=== PATIENT | male | born 1960 | race Caucasian/White ===

== ENCOUNTER 2017-07-27 08:48 | Day surgery (SDC) | payer OTHER ==
[~2017-07-27 08:48] MED LIST: DIPATR PO; METF500 PO; Pepcid40 MG PO
== END 2017-07-27 22:55 | disposition home or self-care (01) ==
LOC: RAD 08:48 → MOI RAD 09:00 → RAD 09:00 → MOI MRI 09:00 → RAD 10:00
PROC: BP39YZZ Magnetic Resonance Imaging (MRI) of Left Shoulder using Other Contrast (ICD-10-PCS; principal; 2017-07-27)
DX: S43.432A Superior glenoid labrum lesion of left shoulder, initial encounter (principal); S46.012A Strain of muscle(s) and tendon(s) of the rotator cuff of left shoulder, initial encounter; M12.812 Other specific arthropathies, not elsewhere classified, left shoulder; S40.012A Contusion of left shoulder, initial encounter
CPT/HCPCS: 23350; 73222; 77002; A9577; Q9967

== ENCOUNTER 2017-10-25 08:29 | Day surgery (SDC) | payer OTHER, BC ==
[~2017-10-25] VITALS: Ht 177.8 cm; Wt 124.7 kg
[2017-10-25] MEDS ORDERED: Norvasc10 MG PO (09:21)
[2017-10-25] MEDS ORDERED: GLIP10 PO (09:22)
== END 2017-10-25 15:58 | disposition home or self-care (01) ==
LOC: ORSCSDS 08:29
DX: M75.112 Incomplete rotator cuff tear or rupture of left shoulder, not specified as traumatic (principal); M75.32 Calcific tendinitis of left shoulder; M75.42 Impingement syndrome of left shoulder; S43.432A Superior glenoid labrum lesion of left shoulder, initial encounter; E11.9 Type 2 diabetes mellitus without complications; I10 Essential (primary) hypertension; Z79.84 Long term (current) use of oral hypoglycemic drugs; F17.220 Nicotine dependence, chewing tobacco, uncomplicated
CPT/HCPCS: 82947; C1713; J0171; J0330; J0690; J2060; J2250; J2405; J2550; J3010; J7120

== ENCOUNTER 2017-11-03 20:26 | Emergency (ER) | payer BC ==
[~2017-11-03] VITALS: Ht 177.8 cm; Wt 124.7 kg
[~2017-11-03 20:26] MED LIST changes: +GLIP10 PO; +Norvasc10 MG PO
[2017-11-03] MEDS ORDERED: PENVK500 PO (21:29)
[2017-11-03] MEDS ORDERED: IBUP800 PO (21:29)
== END 2017-11-03 21:40 | disposition home or self-care (01) ==
LOC: ER 20:26
DX: K02.9 Dental caries, unspecified (principal); Z79.899 Other long term (current) drug therapy; E11.9 Type 2 diabetes mellitus without complications; F17.220 Nicotine dependence, chewing tobacco, uncomplicated
CPT/HCPCS: 99282

== ENCOUNTER 2019-03-15 11:25 | Emergency (ER) | payer OTHER ==
[~2019-03-15] VITALS: Ht 180.3 cm; Wt 99.8 kg
[~2019-03-15 11:25] MED LIST changes: +IBUP800 PO; +PENVK500 PO
[2019-03-15] MEDS ORDERED: Doxazosin Mesyla4 MG PO (11:39)
[2019-03-15] MEDS ORDERED: FURO20 PO (11:40)
[2019-03-15 12:12] LABS: BASOPHILS ABSOLUTE AUTO 0.03 K/mm3 (0.00-0.23); BASOPHILS PERCENT AUTO 0 % (0-2); EOSINOPHILS ABSOLUTE AUTO 0.01 K/mm3 (0.00-0.68); EOSINOPHILS PERCENT AUTO 0 % (0-6); Hematocrit 40.2 % (37.0-53.0); Hemoglobin 13.5 g/dL (13.5-17.5); IMMATURE GRAN ABSOLUTE AUTO 0.04 K/mm3 (0.00-0.10); IMMATURE GRAN PERCENT AUTO 0 % (0-1); LYMPHOCYTES ABSOLUTE AUTO 1.92 K/mm3 (0.84-5.20); LYMPHOCYTES PERCENT AUTO 22 % (21-46); MONOCYTES ABSOLUTE AUTO 0.57 K/mm3 (0.16-1.47); MONOCYTES PERCENT AUTO 6 % (4-13); Mean Corpuscular HGB 28.7 pg (26.0-34.0); Mean Corpuscular HGB Conc 33.6 g/dL (31.5-36.5); Mean Corpuscular Volume 86 fL (80-100); Mean Platelet Volume 10.1 fL (9.1-12.4); NEUTROPHILS ABSOLUTE AUTO 6.35 K/mm3 (1.96-9.15); NEUTROPHILS PERCENT AUTO 71 % (41-73); Platelet Count 264 K/mm3 (150-400); RDW Coefficient Variation 12.3 % (11.7-14.2); RDW Standard Deviation 38.3 fL (35.1-46.3); White Blood Cell Count 8.92 K/mm3 (4.00-11.30)
[2019-03-15 12:34] LABS: Alanine Aminotransfer (ALT/SGP 30 U/L (12-78); Albumin, Blood 3.6 g/dL (3.4-5.0); Albumin/Globulin Ratio 0.9 (0.8-1.8); Alk Phos 101 U/L (50-136); Anion Gap 6 mmol/L (6-16); Aspartate Aminotrans (AST/SGOT 11 U/L (12-37); Bilirubin, Total 0.4 mg/dL (0.1-1.0); Blood Urea Nitrogen 15 mg/dL (8-24); Bun/Creatinine Ratio 18.5 (12.0-20.0); CO2, Blood 27 mmol/L (21-32); Calcium, Blood 8.7 mg/dL (8.5-10.1); Chloride, Blood 103 mmol/L (98-108); Creatinine, Blood 0.81 mg/dL (0.60-1.20); Free Thyroxine 1.11 ng/dL (0.70-1.60); Globulin, Blood 4.2 g/dL (2.2-4.0); Glomerular Filtration Rate >60 (60-); Glucose, Blood 276 mg/dL (70-99); Magnesium, Blood 1.8 mg/dL (1.6-2.4); Potassium, Blood 4.1 mmol/L (3.5-5.5); Sodium, Blood 136 mmol/L (136-145); Total Protein, Blood 7.8 g/dL (6.4-8.2); Troponin I <0.015 ng/mL (0.000-0.040)
[2019-03-15 12:38] LABS: Thyroid Stimulating Hormone 0.999 uIU/mL (0.360-4.800)
== END 2019-03-15 13:40 | disposition home or self-care (01) ==
LOC: ER 11:25
PROVIDERS: Emergency Medicine
DX: E11.65 Type 2 diabetes mellitus with hyperglycemia (principal); R00.2 Palpitations; I10 Essential (primary) hypertension; F17.290 Nicotine dependence, other tobacco product, uncomplicated; Z79.899 Other long term (current) drug therapy
CPT/HCPCS: 36415; 71046; 80053; 82947; 83735; 84439; 84443; 84484; 85025; 93005; 93010; 99285-25